=== PATIENT | female | born 1995 | race Two or more races ===

== ENCOUNTER 2023-12-21 16:26 | Emergency (ER) | payer OTHER ==
[~2023-12-21] VITALS: Ht 167.6 cm; Wt 66.0 kg
[2023-12-21 16:50] VITALS: BP 113/71; PULSE 69; RESP 18; TEMP 98.2; O2SAT 100
[2023-12-21 17:56] LABS: BASOPHILS % 0.7 % (0.0-2.0); CHLORIDE 107 mEq/L (98-107); EOSINOPHILS % 1.1 % (0.0-5.0); HEMATOCRIT. 41.1 % (36.0-48.0); HEMOGLOBIN. 13.4 g/dL (12.0-16.0); LYMPHOCYTES % 25.7 % (20.0-50.0); MEAN CORPUSCULAR HEMOGLOBIN 27.4 pg (28.0-32.0); MEAN CORPUSCULAR HGB CONC 32.6 g/dL (31.0-37.0); MEAN CORPUSCULAR VOLUME 84.1 fL (81.0-99.0); MEAN PLATELET VOLUME 7.7 fl (7.4-10.4); MONOCYTES % 6.3 % (2.0-8.0); NEUTROPHILS % 66.2 % (40.0-76.0); PLATELET 459 x1000/uL (130-400); RED BLOOD CELL COUNT 4.89 mill/uL (4.2-5.4); RED CELL DISTRIBUTION WIDTH 12.4 % (11.6-14.6); SODIUM 139 mEq/L (136-145); WHITE BLOOD COUNT 9.1 x1000/uL (4.5-11.0)
[2023-12-21 17:57] LABS: CALCIUM 9.3 mg/dL (8.7-10.4); CARBON DIOXIDE 28 mEq/L (21-32)
[2023-12-21 18:02] LABS: CREATININE 0.8 mg/dL (0.6-1.0); GLUCOSE 76 mg/dL (70-105); UREA NITROGEN BLOOD 7 mg/dL (9-23)
[2023-12-21 18:03] LABS: PROTHROMBIN TIME 10.9 sec (9.6-11.0)
== END 2023-12-21 19:19 | disposition home or self-care (01) ==
LOC: ER 16:26
DX: M79.605 Pain in left leg (principal); M79.89 Other specified soft tissue disorders; R58 Hemorrhage, not elsewhere classified
CPT/HCPCS: 36415; 73590; 80048; 85025; 93971; 99284